=== PATIENT | female | born 1995 | race American Indian/Alaskan Native ===

== ENCOUNTER 2020-12-12 11:27 | Outpatient (CLI) | payer MEDICAID ==
[2020-12-12] MEDS ORDERED: LACTATED RINGERS 1,000 ML IV ONE (11:43)
[2020-12-12 11:58] VITALS: BP 108/71
[2020-12-12 12:24] LABS: Basophils # (Auto) 0.1 K/mm3 (0.0-0.1); Basophils % (Auto) 0.5 % (0.0-1.8); Eosinophils # (Auto) 0.4 K/mm3 (0.0-0.4); Eosinophils % (Auto) 2.1 % (0.0-4.3); Hematocrit 33.6 % (30.3-42.9); Hemoglobin 11.1 gm/dl (10.1-14.3); Lymphocytes # (Auto) 2.6 K/mm3 (1.2-5.4); Lymphocytes % (Auto) 15.1 % (13.4-35.0); Mean Corpuscular HGB Conc 33 % (30-34); Mean Corpuscular Volume 83 fl (79-97); Monocytes # (Auto) 1.4 K/mm3 (0.0-0.8); Platelet Count 303 K/mm3 (140-440); Red Blood Count 4.06 M/mm3 (3.65-5.03); Red Cell Distribution Width 13.7 % (13.2-15.2)
[2020-12-12 12:33] LABS: INR 0.99 (0.87-1.13)
[2020-12-12 12:34] LABS: Partial Thromboplastin Time 27.9 Sec. (24.2-36.6)
--- NOTE | 2020-12-12 20:38 | Ultrasound Report ---
BIOPHYSICAL PROFILE HISTORY: well being. FINDINGS: Biophysical profile is normal at 8/8. heart tones are 140 bpm. Signer Name: Wil Benson MD Signed: 12/12/2020 8:33 PM Workstation Name: [id number]
--- NOTE | 2020-12-14 07:35 | Ultrasound Report ---
Limited OB ultrasound INDICATION: Fall FINDINGS: There is a live intrauterine in cephalic position. ADDY measures 12.5 cm. Anterior placenta left lateral position. Placenta grade 1. heart rate 1 43 bpm. No abnormal placental s eparation or abruption. IMPRESSION: Live intrauterine with heart rate 1 43 bpm. Signer Name: Brandon Madsen MD Signed: 12/14/2020 7:31 AM Workstation Name: [id number]
--- NOTE | 2020-12-14 07:42 | Ultrasound Report ---
Biophysical profile ultrasound OB complete INDICATION: Fall FINDINGS: breathing movements score 0. movement score 2. posterior tone score 2. Am niotic fluid volume score 2. BPP score 6/8 heart rate 131 IMPRESSION: Biophysical profile 6 out of 8. No breathing movements definitely seen. Signer Name: Brandon Madsen MD Signed: 12/14/2020 7:37 AM Workstation Name: [id number]
== END 2020-12-12 20:33 | disposition home or self-care (01) ==
LOC: TRG 11:27 → APU 11:28 → TRG 20:33
PROVIDERS: ATTEND Obstetrics & Gynecology
DX: O26.893 Other specified pregnancy related conditions, third trimester (principal); W19.XXXA Unspecified fall, initial encounter; Y93.89 Activity, other specified; Y92.89 Other specified places as the place of occurrence of the external cause; Y99.8 Other external cause status; Z3A.33 33 weeks gestation of pregnancy
CPT/HCPCS: 36415; 59025; 76815; 76819; 85025; 85379; 85384; 85460; 85610; 85730; 86900; 86901